=== PATIENT | male | born 1990 | race Caucasian/White ===

== ENCOUNTER 2023-08-15 18:29 | Emergency (ER) | payer OTHER, SELFPAY ==
[2023-08-15 18:43] VITALS: BP 146/83; PULSE 128; RESP 20; TEMP 38.9; O2SAT 97
[2023-08-15 18:46] VITALS: TEMP 38.9
[2023-08-15] MEDS: ACETAMINOPHEN 500 MG TABLET 1000 MG PO (18:46)
--- NOTE | 2023-08-15 18:50 | ED.URI ---
HPI - URI/Sore Throat General Chief Complaint: Upper Respiratory Infection Stated Complaint: Fever/Headache/Congestion Time Seen by Provider: 08/15/23 18:44 Source: patient, RN notes reviewed and old records reviewed Mode of arrival: ambulatory Limitations: no limitations History of Present Illness HPI Narrative: 33-year-old male presents to the [facility] with complaints of congestion, headache, body aches, fevers since last night. Had taken DayQuil last dose 6 hours prior to arrival History of Crohn's and kidney stones. Denies any abdominal pain, chest pain, shortness of breath. No urinary symptoms currently Onset (ago): day(s) (1) Treatments prior to arrival: cold medicine Related Data Home Medications Medication Instructions Recorded Confirmed amlodipine 10 mg tablet 10 mg DIRECTED 08/15/23 08/15/23 metoprolol tartrate 50 mg tablet 50 mg DIRECTED 08/15/23 08/15/23 Allergies Allergy/AdvReac Type Severity Reaction Status Date / Time infliximab [From Remicade] Allergy Severe Swelling Verified 08/15/23 18:46 of Lip/Tongue/Throat Review of Systems Review of Systems: All systems reviewed & are unremarkable except as noted in HPI and below Constitutional: Constitutional: Reports as per HPI, Reports body ache(s), Reports fatigue and Reports fever(s) Eyes: Eyes: Reports no additional eye complaints ENT: Reports system reviewed and no additional complaints, except as documented Cardiovascular: Cardiovascular: Reports no additional cardiovascular complaints, Denies chest pain and Denies dyspnea Respiratory: Respiratory: Reports no additional respiratory complaints, Denies chest congestion, Denies cough and Denies dyspnea Gastrointestinal: Gastrointestinal: Reports no additional gastrointestinal complaints, Denies abdominal pain, Denies nausea and Denies vomiting Musculoskeletal: Musculoskeletal: Reports no additional musculoskeletal complaints Integumentary/Breasts: Skin/Breast: Reports system reviewed and no additional complaints, except as docu Neurologic: Reports system reviewed and no additional complaints, except as documented Psychiatric: Psychiatric: Reports no additional psychiatric complaints Allergic/Immunologic: Allergic/Immunologic: Reports no additional allergic/immunologic complaints PMFSH Past Medical History Medical History (Updated 08/15/23 @ 18:53 by Desi Torres APRN) Crohn's disease Kidney stone Comments At the time of my signature, I reviewed and agree with the nursing past medical, surgical, social, and family history. There is no relevant family history pertinent to the patient complaint. Exam Const: General: cooperative, healthy appearing, no acute distress, well developed, alert, tired appearing, uncomfortable and well nourished Nutritional Appearance: well nourished Orientation/consciousness: patient oriented x3 Limitations: no limitations HENMT: Head: normal to inspection Ears: hearing grossly normal bilaterally, external ears normal, TM's normal bilaterally, EAC's normal, mastoids normal and no periauricular adenopathy Face/Nose/Sinus: Normal external nose present, Normal nares present, Normal nasal mucous membranes and turbinates present, normal facial exam and face symmetric Face and sinus: normal facial exam and face symmetric Mouth: Yes Normal oral and palatal mucosa present, Yes lip normal and Yes moist mucous membranes Throat: posterior oropharynx normal, uvula midline, tonsils absent and no uvular edema Eyes: General: appearance normal, both eyes and all related structures Alignment and Position: alignment normal Periorbital: periorbital findings normal Pupils: Equal, round and reactive pupils present EOM: EOMs intact bilaterally Neck: Neck: normal visual inspection, full ROM, no lymphadenopathy and no meningeal signs Chest: Chest palpation & inspection: normal inspection of the chest Resp: Effort & Inspection: normal respiratory effort and a
[2023-08-15 19:12] VITALS: TEMP 37.9
[2023-08-15 19:13] VITALS: TEMP 37.9
== END 2023-08-15 19:13 | disposition home or self-care (01) ==
PROVIDERS: Emergency Provider Nurse Practitioner
DX: J10.1 Influenza due to other identified influenza virus with other respiratory manifestations (principal); Z79.899 Other long term (current) drug therapy; Z20.822 Contact with and (suspected) exposure to COVID-19
CPT/HCPCS: 87426; 87804; 99213; A9270; G0463

== ENCOUNTER 2023-09-24 16:55 | Emergency (ER) | payer OTHER, SELFPAY ==
--- NOTE | ~2023-09-24 | XR_ITS ---
EXAM: XR foot RT min 3V DATE: 09/24/2023 17:29 HISTORY: foot pain . COMPARISON: None available. FINDINGS: Normal mineralization. No fracture or dislocation. No lytic or blastic lesion. Mild Achill es enthesopathy. No erosion or periosteal change. Soft tissues within normal limits. IMPRESSION: No acute osseous finding in the right foot. Reviewed, dictated and finalized at location K.
[2023-09-24 17:01] VITALS: BP 157/88; PULSE 61; RESP 20; TEMP 36.6; O2SAT 100
--- NOTE | 2023-09-24 17:12 | ED.GENADULT ---
HPI - General Adult General Chief complaint: Extremity Injury, Lower Stated complaint: Right Foot Pain Source: patient, RN notes reviewed and old records reviewed Mode of arrival: ambulatory Limitations: no limitations History of Present Illness HPI narrative: 33-year-old male patient presents to [facility] with complaints posterior lateral foot pain that started Saturday. Patient states Saturday was pushing a go-cart up the hill and foot kind of got jammed. Patient denies any other injuries. Patient has not tried anything for pain. Related Data Home Medications Medication Instructions Recorded Confirmed amlodipine 10 mg tablet 10 mg PO DAILY 08/15/23 09/24/23 metoprolol tartrate 50 mg tablet 50 mg PO BID 08/15/23 09/24/23 Allergies Allergy/AdvReac Type Severity Reaction Status Date / Time infliximab [From Remicade] Allergy Severe Swelling Verified 09/24/23 17:09 of Lip/Tongue/Throat Review of Systems Constitutional: Constitutional: Reports no additional constitutional complaints, Denies body ache(s), Denies chills, Denies fatigue, Denies fever(s) and Denies headache(s) Eyes: Eyes: Reports no additional eye complaints and Denies blurry vision ENT: Reports system reviewed and no additional complaints, except as documented, Denies vertigo, Denies dizziness, Denies ear discharge, Denies otalgia, Denies facial pain, Denies headache(s), Denies nasal congestion, Denies nasal discharge, Denies sinus pain, Denies sinus pressure and Denies sore throat Cardiovascular: Cardiovascular: Reports no additional cardiovascular complaints, Denies chest pain, Denies chest pain at rest, Denies rapid heart rate and Denies dyspnea Respiratory: Respiratory: Reports no additional respiratory complaints, Denies chest congestion, Denies cough, Denies pain on inspiration, Denies pain with cough and Denies dyspnea Gastrointestinal: Gastrointestinal: Denies abdominal pain, Denies diarrhea, Denies nausea and Denies vomiting Musculoskeletal: Musculoskeletal: Reports as per HPI Comments: Right foot pain Integumentary/Breasts: Skin/Breast: Denies rash Neurologic: Reports system reviewed and no additional complaints, except as documented, Denies vertigo, Denies dizziness and Denies headache(s) Endocrine: Endocrine: Denies fatigue [facility] Past Medical History Medical History Crohn's disease Kidney stone Comments At the time of my signature, I reviewed and agree with the nursing past medical, surgical, social, and family history. There is no relevant family history pertinent to the patient complaint. Exam Const: General: cooperative, healthy appearing, no acute distress and well nourished Nutritional Appearance: well nourished Orientation/consciousness: patient oriented x3 Limitations: no limitations HENMT: Head: normal to inspection and normocephalic Ears: external ears normal Face/Nose/Sinus: normal facial exam Face and sinus: normal facial exam Mouth: Yes Normal oral and palatal mucosa present, Yes oropharynx normal and Yes moist mucous membranes Eyes: General: appearance normal, both eyes and all related structures Sclera: sclerae normal Pupils: Equal, round and reactive pupils present Resp: Effort & Inspection: normal respiratory effort, able to speak in complete sentences, no audible wheezes, no cough, no respiratory distress and no retractions Skin: General skin exam: normal color and no rashes or lesions noted Neuro: General: patient oriented x3 Cranial nerves: Yes Equal, round and reactive pupils present Extrem: Right lower extremity: normal capillary refill, lower leg Details: ecchymosis; inspection abnormal, no tenderness, no localized swelling, no palpable cords, edema noted, no pitting edema, no non-pitting edema, no abrasions, no lacerations, no crepitus, no foreign bodies, no penetrating wound, no deformity and no unusual warmth and foot Details: no
== END 2023-09-24 17:43 | disposition home or self-care (01) ==
PROVIDERS: Emergency Provider Registered Nurse
DX: S93.601A Unspecified sprain of right foot, initial encounter (principal); X58.XXXA Exposure to other specified factors, initial encounter; K50.90 Crohn's disease, unspecified, without complications
CPT/HCPCS: 73630; 99213; G0463

== ENCOUNTER 2025-06-04 08:06 | Emergency (ER) | payer BC, SELFPAY ==
[2025-06-04 08:08] VITALS: BP 129/83; PULSE 109; RESP 16; TEMP 37.9; O2SAT 98
[2025-06-04 08:27] LABS: EDCOVIDSCREEN Negative (Negative); EDINFLUASCREEN Positive (Negative); EDINFLUBSCREEN Negative (Negative)
--- NOTE | 2025-06-04 08:38 | ED_ITS ---
HPI - URI/Sore Throat General Chief Complaint: Upper Respiratory Infection Stated Complaint: fever/cough/nose Time Seen by Provider: 06/04/25 08:20 Source: patient and RN notes reviewed Mode of arrival: ambulatory Limitations: no limitations History of Present Illness HPI Narrative: 35-year-old male patient presents [facility] complaining of fever, cough, congestion, and chills since last night. Patient denies any other upper respiratory symptoms, nausea vomiting, diarrhea, chest pain difficulty breathing abdominal pain, or any other symptoms. Patient has been taking [id number] NyQuil, cold and flu medication, and Mucinex to help with symptoms. Patient did not receive his flu vaccine this year. Related Data Home Medications ?Medication ?Instructions ?Recorded ?Confirmed ?Last Taken ?Type amlodipine 10 mg tablet 10 mg PO DAILY 08/15/23 04/0 08/17 Unknown History allopurinol 300 mg tablet mg 06/04/25 Unknown History atenolol 50 mg-chlorthalidone 25 tablet 06/04/25 Unkn own History mg tablet potassium chloride 10 mEq meq PO 06/04/25 Unknown His tory tablet,extended release Allergies Allergy/AdvReac Type Severity Reaction Status Date / Time infliximab (From Remicade) Allergy Severe Swelling Verified 06/04/25 08:17 of Lip/Tongue/Throat Review of Systems Review of Systems: CONSTITUTIONAL: Positive for fever and, chills. Negative for body aches or sweats. EYES: Denies visual changes, redness, or discharge. ENT: Denies rhinorrhea, sore throat, or otalgia. Positive for congestion CARDIOVASCULAR: Denies chest pain, palpitations, or edema. RESPIRATORY: Positive for cough. Negative for wheezing or dyspnea. GASTROINTESTINAL: Denies abdominal pain, nausea, vomiting, or diarrhea. GENITOURINARY: Denies dysuria or hematuria. SKIN: Denies rash or itching. MUSCULOSKELETAL: Denies back pain, joint pain, or myalgia. NEUROLOGIC: Denies headache, numbness, or weakness. PSYCHIATRIC: Denies anxiety or depression. All other systems reviewed are negative, except as documented in HPI. [facility] Past Medical History Medical History Kidney stone Crohn's disease Comments At the time of my signature, I reviewed and agree with the nursing past medical, surgical, social, and family history. There is no relevant family history pertinent to the patient complaint. Exam Narrative: GENERAL: This is a well-nourished, well-developed adult, in no apparent distress. They are non ill-appearing, nontoxic appearing. HEAD: normocephalic, atraumatic. EYES: Sclera clear/white. Conjunctiva normal. Vision is grossly intact. Extraocular movements intact EARS: External ears normal, auditory canals clear and without drainage, TMs normal without perforation. Hearing grossly intact. NOSE: External nose normal with no obvious nasal discharge, nasal turbinates erythematous, no rhinorrhea. THROAT: Mucous membranes moist, posterior pharynx erythematous. Postnasal drip present Uvula midline. NECK: Neck supple, non-tender without lymphadenopathy, masses or thyromegaly. CARDIOVASCULAR: Regular rate and rhythm without murmurs, gallops, or rubs. RESPIRATORY: Clear to auscultation. Breath sounds equal bilaterally. No wheezes, rales, or rhonchi. SKIN: warm, Dry, intact with no suspicious lesions or rash, good texture and turgor. NEURO: awake, alert, and oriented to person, place and time. There were no obvious focal neurologic abnormalities. EXTREMITIES: No joint tenderness, effusion, or edema noted. BACK: Nontender without deformity. No CVA tenderness. Course Course Level of Care: Express Care Visit Vital Signs Vital signs: Vital Signs Temperature 100.2 F H 06/04/25 08:08 Pulse Rate 109 H 06/04/25 08:08 Respiratory Rate 16 06/04/25 08:08 Blood Pressure 129/83 06/04/25 08:08 Pulse Oximetry 98 06/04/25 08:08 Oxygen Delivery Room Air 06/04/25 08:08 Temperature 100.2 F H 06/04/25 08:08 Pulse Rate 109 H 06/04/25 08:08 Respiratory Rate 16 06/04/25 08:08 Blood Pressure 129/83 06/04/25 08:08 Pulse Oximetry 98 06/04/25 08:08 Oxygen Delivery Room Air 06/04/25 08:08 [facility] Narrative Medical decision making narrative: Rapid flu a is positive. Negative flu B and COVID. Patient is in the window for Tamiflu, offer him Tamiflu and he would like to start treatment. Discussed supportive care. Discussed physical exam findings. Advised supportive measures and signs/symptoms to go to the ER. Pt is appropriate for outpt treatment and f/u. Differential Diagnosis Differential Diagnosis: Differential diagnostic considerations for upper respiratory infection include upper respiratory infection, croup, otitis media, sinusitis, viral infection, bronchitis, influenza, pharyngitis, strep, uvulitis. Lab Data [facility] Lab Attestation statement: I personally reviewed the patient's lab results. Labs: Lab Results 06/04/25 Range/Units 08:25 POC Influenza A Ag Positive (Negative) POC Influenza B Ag Negative (Negative) POC SARS CoV-2 Ag Negative (Negative) Critical Care Time Critical Care Time Critical Care Time: No Discharge Plan Discharge Clinical Impression: Influenza Patient Disposition: Home Condition: Stable Instructions: Antibiotic Form, Influenza (ED) Additional Instructions: Take Tamiflu as directed. You should avoid crowds until you are fever free for 24 hours without the use of fever reducing medications, or the symptoms are improved Rest. Drink plenty of fluids. You may take ibuprofen 600 mg to 800 mg every 6-8 hours. Do not exceed more than 800 mg of ibuprofen per dose. Do not exceed more than 3200 mg ibuprofen in a day. You may take up to 1000 mg Tylenol every 6-8 hours. Do not exceed 1000 mg per dose, do exceed more than 4000 mg of Tylenol in a day. Zyrtec for congestion follow instructions on the bottle over the counter Cough syrup may cause drowsiness; avoid driving or take it at night time. Follow up with your primary care provider 3-5 days Go to the ER for chest pains, difficulty breathing, vomiting, weakness, worsening symptoms or concerns Patient Language: Lithuanian Prescriptions: New oseltamivir [Tamiflu] 75 mg capsule 75 mg PO Q12H 5 Days Qty: 10 0RF No Action atenolol-chlorthalidone 50-25 mg tablet potassium chloride 10 mEq tablet extended release PO allopurinol 300 mg tablet amlodipine 10 mg tablet 10 mg PO DAILY Follow-up/Referrals: PHYSICIAN NOT ON STAFF,NONSTAFF [Primary Care Provider] Stand Alone Forms: Work/School Release IP Time of Disposition: 08:32
== END 2025-06-04 08:37 | disposition home or self-care (01) ==
DX: J10.1 Influenza due to other identified influenza virus with other respiratory manifestations (principal); Z20.822 Contact with and (suspected) exposure to COVID-19; K50.90 Crohn's disease, unspecified, without complications
CPT/HCPCS: 87426; 87804; 99213; G0463